=== PATIENT | female | born 1960 | race American Indian/Alaskan Native ===

== ENCOUNTER 2017-07-13 06:30 | Day surgery (SDC) | payer BC, OTHER ==
[2017-07-13] MEDS ORDERED: Lactated Ringers 1,000 ML IV SCH (07:00)
[2017-07-13] MEDS ORDERED: Bupivacaine 25%/EPINEPHrine/PF 30 ML ONE (07:20)
[2017-07-13] MEDS ORDERED: Propofol 200 MG/20 ML SDV ONE ×2 (07:20→08:07)
[2017-07-13] MEDS ORDERED: Lidocaine 2% 5 ML SDV ONE (07:20)
[2017-07-13] MEDS ORDERED: Midazolam 1 MG/ML 2 ML SDV ONE (07:20)
[2017-07-13] MEDS ORDERED: fentaNYL 100 MCG/2 ML SDV ONE (07:20)
[2017-07-13] MEDS ORDERED: ceFAZolin 2 GM in Premix Bag 1 BAG IV ONE (07:30)
--- NOTE | 2017-07-13 07:35 | PCM.PREANE ---
Preanesthetic Assessment - Anesthesia/Transfusion/Family Hx Anesthesia History: Prior Anesthesia Without Reaction Family History of Anesthesia Reaction: No Transfusion History: No Prior Transfusion(s) Intubation History: Unknown - Review of Systems General: No Symptoms Pulmonary: No Symptoms Cardiovascular: No Symptoms Gastrointestinal: No Symptoms Neurological: No Symptoms Other: Reports: None - Physical Assessment NPO Status Date: 07/12/17 NPO Status Time: 20:00 O2 Sat by Pulse Oximetry: 97 Respiratory Rate: 16 Vital Signs: Last Vital Signs Temp 36.2 C 07/13/17 06:51 Pulse 72 07/13/17 06:51 Resp 16 07/13/17 06:51 BP 108/61 07/13/17 06:51 Pulse Ox 97 07/13/17 06:51 Height: 1.7 m Weight: 78.471 kg ASA Class: 2 Mental Status: Alert & Oriented x3 Airway Class: Mallampati = 1 Dentition: Reports: Normal Dentition, Bridge (fixed upper and lower on sides) Thyro-Mental Finger Breadths: 3 Mouth Opening Finger Breadths: 3 ROM/Head Extension: Full Lungs: Clear to Auscultation, Normal Respiratory Effort Cardiovascular: Regular Rate, Regular Rhythm - Allergies Allergies/Adverse Reactions: Allergies Allergy/AdvReac Type Severity Reaction Status Date / Time adalimumab [From Humira] Allergy Rash Verified 07/07/17 08:48 adhesive Allergy Rash Verified 07/07/17 08:48 - Blood Blood Available: No - Anesthesia Plan Pre-Op Medication Ordered: None - Acknowledgements Anesthesia Type Planned: MAC (general anesthesia as back-up plan) Pt an Appropriate Candidate for the Planned Anesthesia: Yes Alternatives and Risks of Anesthesia Discussed w Pt/Guardian: Yes Pt/Guardian Understands and Agrees with Anesthesia Plan: Yes PreAnesthesia Questionnaire HEENT History: Reports: Impaired Vision Other HEENT History: wears glasses Cardiovascular History: Reports: None Respiratory History: Reports: None Gastrointestinal History: Reports: Diverticulosis Genitourinary History: Reports: None 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: Musculoskeletal History: Reports: Arthritis, Fracture Other Musculoskeletal History: hx of fx right leg, rheumatoid arthritis Neurological History: Reports: None Psychiatric History: Reports: None, Other (See Below) (h/o anxiety) Endocrine/Metabolic History: Reports: Hypothyroidism Hematologic History: Reports: Blood Transfusion(s) Immunologic History: Reports: None Oncologic (Cancer) History: Reports: None Dermatologic History: Reports: None - Past Surgical History Head Surgeries/Procedures: Reports: None HEENT Surgical History: Reports: None Cardiovascular Surgical History: Reports: None Respiratory Surgical History: Reports: None GI Surgical History: Reports: Colonoscopy Female Surgical History: Reports: Section (x4), Hysterectomy Other Female Surgeries/Procedures: c/secction x4, exploratory laparotomy, hysterectomy Endocrine Surgical History: Reports: Thyroidectomy Neurological Surgical History: Reports: Laminectomy Other Neurological Surgeries/Procedures: back surgery x2 Musculoskeletal Surgical History: Reports: Arthroscopic Knee (rt. knee) Oncologic Surgical History: Reports: None - SUBSTANCE USE Smoking Status *Q: Former Smoker Days Per Week of Alcohol Use: 0 Number of Drinks Per Day: 0 Total Drinks Per Week: 0 Recreational Drug Use History: No - HOME MEDS Home Medications: Home Meds Cyclobenzaprine [Flexeril] 10 mg PO ASDIRECTED PRN 09/19/14 [History] Levothyroxine Sodium 88 mcg PO DAILY 07/07/17 [History] - CURRENT (IN HOUSE) MEDS Current Meds: Current Medications Hydrocodone Bitart/Acetaminophen ([place] 325-5 Mg) 1 tab PO Q4H PRN PRN Reason: Pain Bupivacaine HCl/Epinephrine Bitart (Marcaine 0.25%/Epinephrine 1:200,000) 10 ml INJECT ONETIME ONE Stop: 07/13/17 08:01 Cefazolin Sodium/Dextrose 2 gm (/ Premix) 50 mls @ 100 mls/hr IV ONETIME ONE Stop: 07/13/17 07:59 Lactated Ringer's (Ringers, Lactated) 1,000 mls @ 125 mls/hr IV ASDIRECTED SCOTT Last Admin: 07/13/17 06:53 Dose: 125 mls/hr Discontinued Medications Fentanyl (Sublimaze) Confirm Administered Dose 100 mcg .ROUTE .STK-MED ONE Stop: 07/13/17 07:21 Bupivacaine HCl/Epinephrine Bitart (Sensorc Mpf 0.25%-Epi 1:311337) Confirm Administered Dose 30 mls @ as directed .ROUTE .STK-MED ONE Stop: 07/13/17 07:21 Lidocaine (Xylocaine-Mpf 2%) Confirm Administered Dose 5 ml .ROUTE .STK-MED ONE Stop: 07/13/17 07:21 Midazolam HCl (Versed 1 Mg/Ml) Confirm Administered Dose 2 mg .ROUTE .STK-MED ONE Stop: 07/13/17 07:21 Propofol (Diprivan 20 Ml) Confirm Administered Dose 200 mg .ROUTE .STK-MED ONE Stop: 07/13/17 07:21
[2017-07-13] MEDS ORDERED: Acetaminophen/HYDROcodone 325-5 MG Tab PO PRN (08:00)
[2017-07-13] MEDS ORDERED: Bupivacaine 0.25%/EPINEPHrine 1:200,000 10 ML SDV INJECT ONE (08:00)
[2017-07-13] MEDS ORDERED: ceFAZolin 1 GM Vial ONE (08:02)
[2017-07-13] MEDS ORDERED: Sodium Chloride 0.9% 20 ML ONE (08:02)
[2017-07-13] MEDS ORDERED: fentaNYL 100 MCG/2 ML SDV IVPUSH PRN (08:21)
[2017-07-13 09:38] VITALS: BP 120/68
--- NOTE | 2017-07-13 13:36 | PCM.OPNOTE ---
- General Post-Op/Procedure Note Date of Surgery/Procedure: 07/13/17 Operative Procedure(s): right middle finger trigger finger release Pre Op Diagnosis: right middle finger trigger finger Post-Op Diagnosis: Same Anesthesia Technique: Local, MAC Primary Surgeon: Patricia Espinosa [employer] Set Up Operator: Dodie Thayer Complications: None Condition: Good Free Text/Narrative:: Intake & Output 07/12/17 07/13/17 07/13/17 23:59 07:59 15:59 Intake Total 900 Balance 900
--- NOTE | 2017-07-15 19:27 | OR ---
SURGEON: NIKKI FERMIN MD DATE OF PROCEDURE: 07/13/2017 PREOPERATIVE DIAGNOSIS: Right middle finger trigger finger. POSTOPERATIVE DIAGNOSIS: Right middle finger trigger finger. PROCEDURE: Right middle finger trigger finger release. 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 Reason for railways assistant was retraction, closure, and prepping and draping assistance. ANESTHESIA: Local MAC. INDICATIONS: Ms. Cruz is a 57-year-old female with trigger finger of the right middle finger. She has failed conservative measures and would like for release. Risks and benefits of surgical release were discussed with her and she was in agreement to proceed. Risks were including, but not limited to, bleeding, infection, damage to underlying or overlying structures, possible need for future interventions, possible scarring. PROCEDURE IN DETAIL: After informed consent was obtained and placed on the chart, the patient was brought to the operating theater in a supine position. After adequate local MAC anesthesia was obtained, the area was prepped and draped and a time-out was completed to confirm side and site. Once adequately confirmed, the arm was exsanguinated and tourniquet was inflated to 200 mmHg after injection of local anesthesia and a small transverse incision was made over the right middle finger A1 gulshan. The gulshan itself was directly located taking care to protect the lateral neurovascular bundle and the gulshan itself was released. It was quite thickened and inflamed. Once adequately released, the tendons were put through full range of motion and appreciated to be non-tethered and non-catching. The wound was irrigated and closed using 5-0 nylon stitches in a horizontal mattress fashion and she was dressed with Xeroform, fluffs, and Kerlix gauze dressing and a 2-inch Freddy wrap. FOLLOWUP INSTRUCTIONS: The patient will see us in approximately 2 weeks. Sooner if any problems, questions, or concerns. All questions were answered. A prescription for pain medication was provided. HEJASS / SHAHIDA /[id number]
== END 2017-07-13 09:30 | disposition home or self-care (01) ==
LOC: MW.SDS 06:30
PROVIDERS: ATTEND Plastic Surgery
DX: M65.331 Trigger finger, right middle finger (principal); E03.9 Hypothyroidism, unspecified; Z91.09 Other allergy status, other than to drugs and biological substances; Z79.899 Other long term (current) drug therapy; Z87.891 Personal history of nicotine dependence
CPT/HCPCS: 26055; J0690; J2250; J3010; J7120; 01810; J2704

== ENCOUNTER 2019-05-26 20:21 | Observation (INO) | payer BC, OTHER ==
[2019-05-26] MEDS ORDERED: Sodium Chloride 0.9% 2.5 ML Syringe FLUSH PRN (20:28)
[2019-05-26] MEDS ORDERED: Sodium Chloride 0.9% 10 ML Syringe FLUSH PRN (20:28)
[2019-05-26] MEDS ORDERED: Aspirin 81 MG Tab.Chew PO ONE (20:28)
[2019-05-26] MEDS ORDERED: Sodium Chloride 0.9% 1,000 ML IV ONE (20:32)
[2019-05-26] MEDS: Nitroglycerin 0.4 MG Tab.SL SL PRN ×3 (20:45→20:55)
--- NOTE | 2019-05-26 20:46 | CR ---
INDICATION: Chest pain TECHNIQUE: Chest 1 views COMPARISON: 11/29/2008 FINDINGS: Cardiovascular and mediastinum: Heart size and vasculature are normal in caliber and appearance. Lungs and pleural spaces: Lungs are clear. No sign of infiltrate or mass. No sign of pleural effusion. No pneumothorax. Bones and soft tissues: No significant findings. Stable elevation of the left diaphragm. IMPRESSION: No acute findings and no significant changes from the prior exam. Dictated by Sang Foster MD @ May 26 2019 8:42PM Signed by Dr. Sang Foster @ May 26 2019 8:44PM
--- NOTE | 2019-05-26 20:49 | EDM.PDOC ---
ED HPI GENERAL MEDICAL PROBLEM - General Chief Complaint: Chest Pain Stated Complaint: CHEST PAIN Time Seen by Provider: 05/26/19 20:27 Source of Information: Reports: Patient History Limitations: Reports: No Limitations - History of Present Illness INITIAL COMMENTS - FREE TEXT/NARRATIVE: HISTORY AND PHYSICAL: History of present illness: Patient is a 59-year-old female who presents to the emergency room today with complaints of midsternal chest pain that radiates into her left neck and shoulder. She states that the pain started this morning, was not doing anything in particular when the pain started. She has tried antacids, one tablet of 81 mg aspirin this morning and resting; all of which have not alleviated her discomfort. Patient states that she does have associated shortness of breath and dizziness. Patient states she is under increased stressors as she has had a few family members pass away recently, including her and aunt. Patient denies any fever, chills, headache, change in vision, syncope or near syncope. Denies any back pain or cough. Denies any abdominal pain, nausea, vomiting, diarrhea, constipation or dysuria. Has not noted any blood in urine or stool. Patient has been eating and drinking appropriately. Patient does have a past medical history of hypertension and does take medication routinely for this, reports she took her medication today Review of systems: As per history of present illness and below otherwise all systems reviewed and negative. Past medical history: As per history of present illness and as reviewed below otherwise noncontributory. Surgical history: As per history of present illness and as reviewed below otherwise noncontributory. Social history: See social history for further information Family history: As per history of present illness and as reviewed below otherwise noncontributory. Physical exam: General: Well-developed and well-nourished 59-year-old female. Alert and oriented. Nontoxic appearing and in no acute distress. HEENT: Atraumatic, normocephalic, pupils equal and reactive bilaterally, negative for conjunctival pallor or scleral icterus, mucous membranes moist, trachea midline. No drooling or trismus noted. No meningeal signs. No hot potato voice noted. Lungs: Clear to auscultation, breath sounds equal bilaterally, upper chest tenderness with palpation. Heart: S1S2, regular rate and rhythm without overt murmur Abdomen: Soft, nondistended, nontender. Negative for masses or hepatosplenomegaly. Negative for costovertebral tenderness. Pelvis: Stable nontender. Skin: Intact, warm, dry. No lesions or rashes noted. Extremities: Atraumatic, moves all extremities per self without difficulty or deficits, negative for cords or calf pain. Neurovascular unremarkable. Neuro: Awake, alert, oriented. Cranial nerves II through XII unremarkable. Cerebellum unremarkable. Motor and sensory unremarkable throughout. Exam nonfocal. Notes: Patient did get relief with the nitroglycerin, now rating it at a 1 or 2 out of 10. We'll give her some morphine to see if this helped subside the pain. Blood pressure has improved. Will continue to monitor. Lab work is unremarkable. Chest x-ray shows no acute findings. We'll keep the patient for observation admission with telemetry. Dr. Ma was consult on this patient and agreeable for continued care. Diagnostics: CBC, CMP, Troponin, EKG, CXR, UA Therapeutics: IV fluids, ASA, Nitro, morphine Impression: Chest Pain w/o IN Plan: Observation admission with telemetry Definitive disposition and diagnosis as appropriate pending reevaluation and review of above. Chest Pain Score (Numeric/FACES): 8 - Related Data Allergies Allergy/AdvReac Type Severity Reaction Status Date / Time adalimumab [From Humira] Allergy Rash Verified 05/26/19 20:23 adhesive Allergy Rash Verified 05/26/19 20:23 Home Meds: Home Meds Cyclobenzaprine [Flexeril] 10 mg PO ASDIRECTED PRN 09/19/14 [History] Levothyroxine Sodium 88 mcg PO DAILY 07/07/17 [History] Acetaminophen/HYDROcodone [[place] 325-5 MG] 1 tab PO Q4H PRN #30 tablet 07/13/17 [Rx] LORazepam [Ativan] 1 mg PO ASDIRECTED 05/26/19 [History] Metoprolol Succinate 25 mg PO ASDIRECTED 05/26/19 [History] Multivitamin/Iron/Folic Acid [Centrum Adults Tablet] 1 each PO ASDIRECTED [History] Past Medical History HEENT History: Reports: Impaired Vision Other HEENT History: wears glasses Cardiovascular History: Reports: None Respiratory History: Reports: None Gastrointestinal History: Reports: Diverticulosis Genitourinary History: Reports: None 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: Musculoskeletal History: Reports: Arthritis, Fracture Other Musculoskeletal History: hx of fx right leg, rheumatoid arthritis Neurological History: Reports: None Psychiatric History: Reports: None, Other (See Below) Endocrine/Metabolic History: Reports: Hypothyroidism Hematologic History: Reports: Blood Transfusion(s) Immunologic History: Reports: None Oncologic (Cancer) History: Reports: None Dermatologic History: Reports: None - Past Surgical History Head Surgeries/Procedures: Reports: None HEENT Surgical History: Reports: None Cardiovascular Surgical History: Reports: None Respiratory Surgical History: Reports: None GI Surgical History: Reports: Colonoscopy Female Surgical History: Reports: Section, Hysterectomy Other Female Surgeries/Procedures: c/secction x4, exploratory laparotomy, hysterectomy Endocrine Surgical History: Reports: Thyroidectomy Neurological Surgical History: Reports: Laminectomy Other Neurological Surgeries/Procedures: back surgery x2 Musculoskeletal Surgical History: Reports: Arthroscopic Knee Oncologic Surgical History: Reports: None Social & Family History - Family History Family Medical History: Noncontributory - Tobacco Use Smoking Status *Q: Never Smoker Second Hand Smoke Exposure: No - Caffeine Use Caffeine Use: Reports: Coffee - Recreational Drug Use Recreational Drug Use: No ED ROS GENERAL - Review of Systems Review Of Systems: Comprehensive ROS is negative, except as noted in HPI. ED EXAM, GENERAL - Physical Exam Exam: See Below (See dictation) Course - Vital Signs Last Recorded V/S: Last Vital Signs Temp 98.5 F 05/26/19 20:25 Pulse 94 05/26/19 21:00 Resp 19 05/26/19 21:00 BP 121/73 05/26/19 21:00 Pulse Ox 97 05/26/19 21:00 - Orders/Labs/Meds Orders: Active Orders 24 hr Category Date Time Status Admission Status [Patient Status] [ADT] Stat ADT 05/26/19 21:18 Active EKG Documentation Completion [RC] STAT Care 05/26/19 20:28 Active UA RFX ODALIS AND CULT IF INDIC [URIN] Stat Lab 05/26/19 20:52 Ordered Sodium Chloride 0.9% [Normal Saline] 1,000 ml Med 05/26/19 20:32 Active IV STAT Sodium Chloride 0.9% [Saline Flush] Med 05/26/19 20:28 Active 10 ml FLUSH ASDIRECTED PRN Sodium Chloride 0.9% [Saline Flush] Med 05/26/19 20:28 Active 2.5 ml FLUSH ASDIRECTED PRN Saline Lock Insert [OM.PC] Stat Oth 05/26/19 20:28 Ordered Medication Orders Sodium Chloride (Normal Saline) 1,000 mls @ 125 mls/hr IV STAT ONE Stop: 05/27/19 04:31 Last Admin: 05/26/19 20:45 Dose: 125 mls/hr Sodium Chloride (Saline Flush) 10 ml FLUSH ASDIRECTED PRN PRN Reason: Keep Vein Open Sodium Chloride (Saline Flush) 2.5 ml FLUSH ASDIRECTED PRN PRN Reason: Keep Vein Open Labs: Laboratory Tests 05/26/19 05/26/19 Range/Units 20:30 20:30 WBC 9.90 (4.0-11.0) K/uL RBC 4.56 (4.30-5.90) M/uL Hgb 13.3 (12.0-16.0) g/dL Hct 39.9 (36.0-46.0) % MCV 87.5 (80.0-98.0) fL MCH 29.2 (27.0-32.0) pg MCHC 33.3 (31.0-37.0) g/dL RDW Std Deviation 43.4 (28.0-62.0) fl RDW Coeff of Ana 14 (11.0-15.0) % Plt Count 243 (150-400) K/uL MPV 11.20 (7.40-12.00) fL Neut % (Auto) 61.7 (48.0-80.0) % Lymph % (Auto) 30.4 (16.0-40.0) % [place] % (Auto) 5.8 (0.0-15.0) % Eos % (Auto) 1.9 (0.0-7.0) % Baso % (Auto) 0.2 (0.0-1.5) % Neut # (Auto) 6.1 H (1.4-5.7) K/uL Lymph # (Auto) 3.0 H (0.6-2.4) K/uL [place] # (Auto) 0.6 (0.0-0.8) K/uL Eos # (Auto) 0.2 (0.0-0.7) K/uL Baso # (Auto) 0.0 (0.0-0.1) K/uL Nucleated RBC % 0.0 /100WBC Nucleated RBCs # 0 K/uL Sodium 141 (136-145) mmol/L Potassium 3.9 (3.5-5.1) mmol/L Chloride 105 (98-107) mmol/L Carbon Dioxide 24.4 (21.0-32.0) mmol/L BUN 13 (7.0-18.0) mg/dL Creatinine 0.8 (0.6-1.0) mg/dL Est Cr Clr Drug Dosing 74.54 mL/min Estimated GFR (MDRD) > 60.0 ml/min Glucose 119 H (74-106) mg/dL Calcium 8.9 (8.5-10.1) mg/dL Total Bilirubin 0.2 (0.2-1.0) mg/dL AST 26 (15-37) IU/L ALT 42 (14-63) IU/L Alkaline Phosphatase 115 (46-116) U/L Troponin I < 0.050 (0.000-0.056) ng/mL Total Protein 7.2 (6.4-8.2) g/dL Albumin 3.9 (3.4-5.0) g/dL Globulin 3.3 (2.6-4.0) g/dL Albumin/Globulin Ratio 1.2 (0.9-1.6) Meds: Medications Generic Name Dose Route Start Last Admin Trade Name Luísq PRN Reason Stop Dose Admin Sodium Chloride 1,000 mls @ 125 mls/hr 05/26/19 20:32 05/26/19 20:45 Normal Saline IV 05/27/19 04:31 125 mls/hr STAT ONE Administration Sodium Chloride 10 ml 05/26/19 20:28 Saline Flush FLUSH ASDIRECTED PRN Keep Vein Open Sodium Chloride 2.5 ml 05/26/19 20:28 Saline Flush FLUSH ASDIRECTED PRN Keep Vein Open Discontinued Medications Generic Name Dose Route Start Last Admin Trade Name Freq PRN Reason Stop Dose Admin Aspirin 324 mg 05/26/19 20:28 05/26/19 20:32 Aspirin PO 05/26/19 20:29 324 mg ONETIME ONE Administration Morphine Sulfate 2 mg 05/26/19 21:02 Morphine IVPUSH 05/26/19 21:03 ONETIME ONE Nitroglycerin 0.4 mg 05/26/19 20:32 05/26/19 20:55 Nitrostat SL 0.4 mg Q5M PRN Administration Chest Pain Departure - Departure Time of Disposition: 21:26 Disposition: Refer to Observation Clinical Impression: Chest pain, rule out acute myocardial infarction Referrals: PCP,Unknown [Primary Care Provider] - Forms: ED Department Discharge - My Orders Last 24 Hours: My Active Orders 05/26/19 20:28 EKG Documentation Completion [RC] STAT Sodium Chloride 0.9% [Saline Flush] 10 ml FLUSH ASDIRECTED PRN Sodium Chloride 0.9% [Saline Flush] 2.5 ml FLUSH ASDIRECTED PRN Saline Lock Insert [OM.PC] Stat 05/26/19 20:32 Sodium Chloride 0.9% [Normal Saline] 1,000 ml IV STAT 05/26/19 20:52 UA RFX ODALIS AND CULT IF INDIC [URIN] Stat 05/26/19 21:18 Admission Status [Patient Status] [ADT] Stat - Assessment/Plan Last 24 Hours: My Active Orders 05/26/19 20:28 EKG Documentation Completion [RC] STAT Sodium Chloride 0.9% [Saline Flush] 10 ml FLUSH ASDIRECTED PRN Sodium Chloride 0.9% [Saline Flush] 2.5 ml FLUSH ASDIRECTED PRN Saline Lock Insert [OM.PC] Stat 05/26/19 20:32 Sodium Chloride 0.9% [Normal Saline] 1,000 ml IV STAT 05/26/19 20:52 UA RFX ODALIS AND CULT IF INDIC [URIN] Stat 05/26/19 21:18 Admission Status [Patient Status] [ADT] Stat
[2019-05-26] MEDS ORDERED: Morphine 2 MG/ML Syringe IVPUSH ONE ×2 (21:02→23:46)
[2019-05-26 21:12] LABS: BLOOD UREA NITROGEN,BUN 13 mg/dL (7.0-18.0); CARBON DIOXIDE,CO2 24.4 mmol/L (21.0-32.0); CHLORIDE,CL 105 mmol/L (98-107); GLUCOSE RANDOM 119 mg/dL (74-106); POTASSIUM,K 3.9 mmol/L (3.5-5.1); SODIUM,NA 141 mmol/L (136-145)
[2019-05-26] MEDS ORDERED: Acetaminophen 325 MG Tab PO PRN (21:57)
[2019-05-26] MEDS ORDERED: Ondansetron 4 MG Tab.DIS PO PRN (21:57)
[2019-05-26] MEDS ORDERED: Albuterol/Ipratropium 3.0-0.5 MG/3 ML Neb Soln NEB PRN (21:57)
[2019-05-26] MEDS ORDERED: Ondansetron 4 MG/2 ML SDV IVPUSH PRN (21:57)
[2019-05-26] MEDS ORDERED: atorvaSTATin 40 MG Tab PO SCH (22:01)
--- NOTE | 2019-05-26 22:03 | PCM.HP.2 ---
H&P History of Present Illness - General Date of Service: 05/26/19 Admit Problem/Dx: Admission Diagnosis/Problem Admission Diagnosis/Problem Chest pain, rule out acute myocardial infarction Source of Information: Patient History Limitations: Reports: No Limitations - History of Present Illness Initial Comments - Free Text/Narative: Patient is a 59-year-old female with PMH of HTN, hypothyroidism, anxiety who presents to the emergency room today with c/o of midsternal chest pain that radiates into her left neck and shoulder. Patient states that her pain started this AM with no apparent trigger. She attributed it to acidity so took antacids , and aspirin but it didn't improve the pain. Patient denied palpitations, dizziness, syncope, SOB, cough, fever. Patient states that she had a in her family so has been under a lot of stress. Denies any abdominal pain, nausea , vomiting, diarrhea, constipation or dysuria. In the ER patient recived ASA, morphine and nitro which improved the pain, EKG showed sinus rhythm, 1st troponin was negative. Patient has been admitted for ACS rule out. Onset of Symptoms: Reports: Today, Sudden Duration of Symptoms: Reports: Hour(s): Location: Reports: Neck, Chest Quality: Reports: Sharp Improves with: Reports: None Worsens with: Reports: None Chest Pain Score (Numeric/FACES): 8 - Related Data Allergies/Adverse Reactions: Allergies Allergy/AdvReac Type Severity Reaction Status Date / Time adalimumab [From Humira] Allergy Rash Verified 05/26/19 22:13 adhesive Allergy Rash Verified 05/26/19 22:13 Home Medications: Home Meds Cyclobenzaprine [Flexeril] 10 mg PO ASDIRECTED PRN 09/19/14 [History] Levothyroxine Sodium 88 mcg PO DAILY 07/07/17 [History] LORazepam [Ativan] 1 mg PO ASDIRECTED 05/26/19 [History] Metoprolol Succinate 25 mg PO ASDIRECTED 05/26/19 [History] Multivitamin/Iron/Folic Acid [Centrum Adults Tablet] 1 each PO ASDIRECTED [History] Past Medical History HEENT History: Reports: Impaired Vision Other HEENT History: wears glasses Cardiovascular History: Reports: None Respiratory History: Reports: None Gastrointestinal History: Reports: Diverticulosis Genitourinary History: Reports: None MANAGED CARE PROVIDER History: Reports: Musculoskeletal History: Reports: Arthritis, Fracture Other Musculoskeletal History: hx of fx right leg, rheumatoid arthritis Neurological History: Reports: None Psychiatric History: Reports: None, Other (See Below) Endocrine/Metabolic History: Reports: Hypothyroidism Hematologic History: Reports: Blood Transfusion(s) Immunologic History: Reports: None Oncologic (Cancer) History: Reports: None Dermatologic History: Reports: None - Past Surgical History Head Surgeries/Procedures: Reports: None HEENT Surgical History: Reports: None Cardiovascular Surgical History: Reports: None Respiratory Surgical History: Reports: None GI Surgical History: Reports: Colonoscopy Female Surgical History: Reports: Section, Hysterectomy Other Female Surgeries/Procedures: c/secction x4, exploratory laparotomy, hysterectomy Endocrine Surgical History: Reports: Thyroidectomy Neurological Surgical History: Reports: Laminectomy Other Neurological Surgeries/Procedures: back surgery x2 Musculoskeletal Surgical History: Reports: Arthroscopic Knee Oncologic Surgical History: Reports: None Social & Family History - Family History Family Medical History: Noncontributory - Tobacco Use Smoking Status *Q: Never Smoker Second Hand Smoke Exposure: No - Caffeine Use Caffeine Use: Reports: Coffee - Recreational Drug Use Recreational Drug Use: No H&P Review of Systems - Review of Systems: Review Of Systems: See Below General: Denies: Fever, Chills, Malaise HEENT: Denies: Contact Lenses, Dysphasia Pulmonary: Denies: Shortness of Breath, Wheezing Cardiovascular: Reports: Chest Pain. Denies: Palpitations, Dyspnea on Exertion , Orthopnea, PND, Edema, Lightheadedness, Syncope Gastrointestinal: Denies: Abdominal Pain, Anorexia, Black Stool, Diarrhea, Decreased Appetite Genitourinary: Denies: Dysuria, Frequency, Burning Musculoskeletal: Denies: Neck Pain, Shoulder Pain, Arm Pain Skin: Denies: Cyanosis, Jaundice, Mottled Psychiatric: Denies: Confusion, Depression, Mood Lability Neurological: Denies: Confusion, Dizziness, Headache, Numbness Exam - Exam Exam: See Below - Vital Signs Vital Signs: Last Vital Signs Temp 36.9 C 05/26/19 20:25 Pulse 81 05/26/19 21:29 Resp 18 05/26/19 21:29 BP 134/68 05/26/19 21:29 Pulse Ox 99 05/26/19 21:29 Weight: 77.111 kg - Exam General: Alert, Oriented, Cooperative HEENT: Conjunctiva Clear Neck: Supple, Trachea Midline Lungs: Clear to Auscultation, Normal Respiratory Effort Cardiovascular: Regular Rate, Regular Rhythm GI/Abdominal Exam: Normal Bowel Sounds, Soft, Non-Tender Extremities: Normal Inspection, No Pedal Edema Peripheral Pulses: 3+: Dorsalis Pedis (L), Dorsalis Pedis (R) - Patient Data Lab Results Last 24 hrs: Laboratory Results - last 24 hr 05/26/19 05/26/19 Range/Units 20:30 20:30 WBC 9.90 (4.0-11.0) K/uL RBC 4.56 (4.30-5.90) M/uL Hgb 13.3 (12.0-16.0) g/dL Hct 39.9 (36.0-46.0) % MCV 87.5 (80.0-98.0) fL MCH 29.2 (27.0-32.0) pg MCHC 33.3 (31.0-37.0) g/dL RDW Std Deviation 43.4 (28.0-62.0) fl RDW Coeff of Ana 14 (11.0-15.0) % Plt Count 243 (150-400) K/uL MPV 11.20 (7.40-12.00) fL Neut % (Auto) 61.7 (48.0-80.0) % Lymph % (Auto) 30.4 (16.0-40.0) % [place] % (Auto) 5.8 (0.0-15.0) % Eos % (Auto) 1.9 (0.0-7.0) % Baso % (Auto) 0.2 (0.0-1.5) % Neut # (Auto) 6.1 H (1.4-5.7) K/uL Lymph # (Auto) 3.0 H (0.6-2.4) K/uL [place] # (Auto) 0.6 (0.0-0.8) K/uL Eos # (Auto) 0.2 (0.0-0.7) K/uL Baso # (Auto) 0.0 (0.0-0.1) K/uL Nucleated RBC % 0.0 /100WBC Nucleated RBCs # 0 K/uL Sodium 141 (136-145) mmol/L Potassium 3.9 (3.5-5.1) mmol/L Chloride 105 (98-107) mmol/L Carbon Dioxide 24.4 (21.0-32.0) mmol/L BUN 13 (7.0-18.0) mg/dL Creatinine 0.8 (0.6-1.0) mg/dL Est Cr Clr Drug Dosing 74.54 mL/min Estimated GFR (MDRD) > 60.0 ml/min Glucose 119 H (74-106) mg/dL Calcium 8.9 (8.5-10.1) mg/dL Total Bilirubin 0.2 (0.2-1.0) mg/dL AST 26 (15-37) IU/L ALT 42 (14-63) IU/L Alkaline Phosphatase 115 (46-116) U/L Troponin I < 0.050 (0.000-0.056) ng/mL Total Protein 7.2 (6.4-8.2) g/dL Albumin 3.9 (3.4-5.0) g/dL Globulin 3.3 (2.6-4.0) g/dL Albumin/Globulin Ratio 1.2 (0.9-1.6) Result Diagrams: 05/26/19 20:30 05/26/19 20:30 *Q Meaningful Use (ADM) - VTE Risk Assess *Q Each Risk Factor Represents 1 Point: Age 41 - 59 years Total Score 1 Point Risk Factors: 1 Each Risk Factor Represents 2 Points: None Total Score 2 Point Risk Factors: 0 Each Risk Factor Represents 3 Points: None Total Score 3 Point Risk Factors: 0 - Problem List (1) Hypothyroidism SNOMED Code(s): 43578711 ICD Code: E03.9 - HYPOTHYROIDISM, UNSPECIFIED Status: Acute Current Visit : Yes (2) Anxiety SNOMED Code(s): 34461809 ICD Code: F41.9 - ANXIETY DISORDER, UNSPECIFIED Status: Acute Current Visit: Yes (3) Chest pain, rule out acute myocardial infarction SNOMED Code(s): 00179051 ICD Code: R07.9 - CHEST PAIN, UNSPECIFIED Status: Acute Current Visit: Yes Problem List Initiated/Reviewed/Updated: Yes Orders Last 24hrs: Active Orders 24 hr Category Date Time Status Admission Status [Patient Status] [ADT] Stat ADT 05/26/19 21:18 Active Antiembolic Devices [RC] PER UNIT ROUTINE Care 05/26/19 21:59 Ordered Blood Glucose Check, Bedside [RC] BIDAC Care 05/26/19 21:57 Ordered EKG Documentation Completion [RC] STAT Care 05/26/19 20:28 Active Oxygen Therapy [RC] PRN Care 05/26/19 21:57 Ordered RT Aerosol Therapy [RC] ASDIRECTED Care 05/26/19 21:59 Ordered VTE/DVT Education [RC] PER UNIT ROUTINE Care 05/26/19 21:57 Ordered Vital Signs [RC] Q4H Care 05/26/19 21:57 Ordered Heart Healthy Diet [DIET] Diet 05/27/19 Breakfast Ordered Echo 2D wo Cont [US] Routine Exams 05/26/19 22:02 Ordered GLYCOSYLATED HEMOGLOBIN,HGBA1C [CHEM] AM Lab 05/27/19 05:11 Ordered LIPID PANEL [CHEM] AM Lab 05/27/19 05:11 Ordered TSH [CHEM] AM Lab 05/27/19 05:11 Ordered UA RFX ODALIS AND CULT IF INDIC [URIN] Stat Lab 05/26/19 20:52 Ordered Acetaminophen [Tylenol] Med 05/26/19 21:57 Ordered 650 mg PO Q4H PRN Albuterol/Ipratropium [DuoNeb 3.0-0.5 MG/3 ML] Med 05/26/19 21:57 Ordered 3 ml NEB Q4HRRT PRN Aspirin Med 05/27/19 09:00 Ordered 81 mg PO DAILY Ondansetron [Zofran ODT] Med 05/26/19 21:57 Ordered 4 mg PO Q4H PRN Ondansetron [Zofran] Med 05/26/19 21:57 Ordered 4 mg IVPUSH Q4H PRN Sodium Chloride 0.9% [Normal Saline] 1,000 ml Med 05/26/19 20:32 Active IV STAT Sodium Chloride 0.9% [Saline Flush] Med 05/26/19 20:28 Active 10 ml FLUSH ASDIRECTED PRN Sodium Chloride 0.9% [Saline Flush] Med 05/26/19 20:28 Active 2.5 ml FLUSH ASDIRECTED PRN atorvaSTATin [Lipitor] Med 05/26/19 22:01 Ordered 40 mg PO BEDTIME Saline Lock Insert [OM.PC] Stat Oth 05/26/19 20:28 Ordered Sequential Compression Device [OM.PC] Per Unit Routine Oth 05/26/19 21:57 Ordered Resuscitation Status Routine Resus Stat 05/26/19 21:57 Ordered Medication Orders Acetaminophen (Tylenol) 650 mg PO Q4H PRN PRN Reason: Pain (Mild 1-3)/fever Albuterol/Ipratropium (Duoneb 3.0-0.5 Mg/3 Ml) 3 ml NEB Q4HRRT PRN PRN Reason: Shortness Of Breath/wheezing Aspirin (Aspirin) 81 mg PO DAILY [facility] Atorvastatin Calcium (Lipitor) 40 mg PO BEDTIME [facility] Sodium Chloride (Normal Saline) 1,000 mls @ 125 mls/hr IV STAT ONE Stop: 05/27/19 04:31 Last Admin: 05/26/19 20:45 Dose: 125 mls/hr Ondansetron HCl (Zofran Odt) 4 mg PO Q4H PRN PRN Reason: nausea, able to take PO Ondansetron HCl (Zofran) 4 mg IVPUSH Q4H PRN PRN Reason: Nausea/Vomiting Sodium Chloride (Saline Flush) 10 ml FLUSH ASDIRECTED PRN PRN Reason: Keep Vein Open Sodium Chloride (Saline Flush) 2.5 ml FLUSH ASDIRECTED PRN PRN Reason: Keep Vein Open Assessment/Plan Comment:: A/P: Patient comes in with C/P, recent stressors with of EKG unremarkable, 1st trop negative Will con to trend troponin start oxygenation by NC Start ASA, statin Obtain TSH, Lipid profile, HbA1c for risk stratification BP acceptable for now, will hold B hilda
[2019-05-26] MEDS ORDERED: Acetaminophen/HYDROcodone 325-5 MG Tab PO PRN (22:09)
[2019-05-26] MEDS ORDERED: LORazepam 1 MG Tab PO SCH ×2 (22:15→23:45)
[2019-05-26] MEDS ORDERED: Non-Formulary Medication 1 Each (Multivitamin/Iron/Folic Acid [Centrum Adults Tablet] 1 EA PO SCH (22:15)
[2019-05-27 06:30] LABS: BLOOD UREA NITROGEN,BUN 12 mg/dL (7.0-18.0); CARBON DIOXIDE,CO2 27.5 mmol/L (21.0-32.0); CHLORIDE,CL 106 mmol/L (98-107); GLUCOSE RANDOM 102 mg/dL (74-106); POTASSIUM,K 3.6 mmol/L (3.5-5.1); SODIUM,NA 141 mmol/L (136-145)
[2019-05-27] MEDS ORDERED: Levothyroxine 88 MCG Tab PO SCH (09:00)
[2019-05-27] MEDS ORDERED: Aspirin 81 MG Tab.Chew PO SCH (09:00)
--- NOTE | 2019-05-27 12:04 | PCM.DCSUM1 ---
Discharge Summary - Hospital Course Free Text/Narrative:: Patient is a 59-year-old female with PMH of HTN, hypothyroidism, anxiety who presents to the emergency room today with c/o of midsternal chest pain that radiates into her left neck and shoulder. Patient states that her pain started this AM with no apparent trigger. She attributed it to acidity so took antacids , and aspirin but it didn't improve the pain. Patient denied palpitations, dizziness, syncope, SOB, cough, fever. Patient states that she had a in her family so has been under a lot of stress. Denies any abdominal pain, nausea , vomiting, diarrhea, constipation or dysuria. In the ER patient received ASA, morphine and nitro which improved the pain, EKG showed sinus rhythm, 1st troponin was negative. Patient has been admitted for ACS rule out. All 3 troponis were negative. Lipid profile was normal. HbA1c was 6. TSH normal. Patients chest pain improved. 2D ECHO was ordered but couldn't be done routinely over the weekend. Patient was medically stable to be discharged, chest pain likely stress induced, need to f/u with PCP and cardiology and obtain 2D ECHO on Outpatient basis. patient was started on low dose ASA and low dose stain. Diagnosis: Stroke: No - Discharge Data Discharge Date: 05/27/19 Discharge Disposition: Home, Self-Care 01 Condition: Fair - Referral to Home Health Primary Care Physician: PCP Unknown - Discharge Diagnosis/Problem(s) (1) Chest pain, rule out acute myocardial infarction SNOMED Code(s): 17598613 ICD Code: R07.9 - CHEST PAIN, UNSPECIFIED Status: Acute Current Visit: Yes (2) Hypothyroidism SNOMED Code(s): 32300196 ICD Code: E03.9 - HYPOTHYROIDISM, UNSPECIFIED Status: Acute Current Visit : Yes (3) Anxiety SNOMED Code(s): 67019895 ICD Code: F41.9 - ANXIETY DISORDER, UNSPECIFIED Status: Acute Current Visit: Yes - Patient Instructions Diet: Heart Healthy Diet Activity: As Tolerated Driving: May Drive Today Showering/Bathing: May Shower Notify Provider of: Increased Pain, Nausea and/or Vomiting - Discharge Plan *PRESCRIPTION DRUG MONITORING PROGRAM REVIEWED*: Not Applicable *COPY OF PRESCRIPTION DRUG MONITORING REPORT IN PATIENT SILVIANO: Not Applicable Prescriptions/Med Rec: Aspirin 81 mg PO DAILY #30 tab.chew atorvaSTATin [Lipitor] 10 mg PO BEDTIME #30 tab Home Medications: Home Meds Cyclobenzaprine [Flexeril] 10 mg PO BEDTIME PRN 09/19/14 [History] Levothyroxine Sodium 88 mcg PO DAILY 07/07/17 [History] LORazepam [Ativan] 1 mg PO BEDTIME 05/26/19 [History] Metoprolol Succinate 25 mg PO DAILY 05/26/19 [History] Multivitamin/Iron/Folic Acid [Centrum Adults Tablet] 1 each PO DAILY 05/26/19 [ History] Aspirin 81 mg PO DAILY #30 tab.chew 05/27/19 [Rx] atorvaSTATin [Lipitor] 10 mg PO BEDTIME #30 tab 05/27/19 [Rx] Oxygen Therapy Mode: Room Air Patient Handouts: Aspirin, ASA chewable tablets, Nonspecific Chest Pain, Easy- to-Read, Atorvastatin tablets Referrals: [facility]inic [Ordering Only Provider] - (Call the clinic on Tuesday to make a hospital follow-up. This was not able to be done for you due to it being the weekend. ) Emili Newton MD [Physician] - - Discharge Summary/Plan Comment DC Time >30 min.: No - Patient Data Vitals - Most Recent: Last Vital Signs Temp 36.2 C 05/27/19 07:37 Pulse 70 05/27/19 07:37 Resp 15 05/27/19 07:37 BP 114/57 L 05/27/19 07:37 Pulse Ox 100 05/27/19 07:37 Weight - Most Recent: 77.111 kg I&O - Last 24 hours: Intake & Output 05/26/19 05/27/19 05/27/19 22:59 06:59 14:59 Intake Total 300 Output Total 350 Balance -50 Lab Results - Last 24 hrs: Laboratory Results - last 24 hr 05/26/19 05/26/19 05/26/19 Range/Units 20:30 20:30 23:53 WBC 9.90 (4.0-11.0) K/uL RBC 4.56 (4.30-5.90) M/uL Hgb 13.3 (12.0-16.0) g/dL Hct 39.9 (36.0-46.0) % MCV 87.5 (80.0-98.0) fL MCH 29.2 (27.0-32.0) pg MCHC 33.3 (31.0-37.0) g/dL RDW Std Deviation 43.4 (28.0-62.0) fl RDW Coeff of Ana 14 (11.0-15.0) % Plt Count 243 (150-400) K/uL MPV 11.20 (7.40-12.00) fL Neut % (Auto) 61.7 (48.0-80.0) % Lymph % (Auto) 30.4 (16.0-40.0) % [place] % (Auto) 5.8 (0.0-15.0) % Eos % (Auto) 1.9 (0.0-7.0) % Baso % (Auto) 0.2 (0.0-1.5) % Neut # (Auto) 6.1 H (1.4-5.7) K/uL Lymph # (Auto) 3.0 H (0.6-2.4) K/uL [place] # (Auto) 0.6 (0.0-0.8) K/uL Eos # (Auto) 0.2 (0.0-0.7) K/uL Baso # (Auto) 0.0 (0.0-0.1) K/uL Nucleated RBC % 0.0 /100WBC Nucleated RBCs # 0 K/uL Sodium 141 (136-145) mmol/L Potassium 3.9 (3.5-5.1) mmol/L Chloride 105 (98-107) mmol/L Carbon Dioxide 24.4 (21.0-32.0) mmol/L BUN 13 (7.0-18.0) mg/dL Creatinine 0.8 (0.6-1.0) mg/dL Est Cr Clr Drug Dosing 74.54 mL/min Estimated GFR (MDRD) > 60.0 ml/min Glucose 119 H (74-106) mg/dL POC Glucose (60-110) mg/dL Hemoglobin A1c (4.5-6.2) % Calcium 8.9 (8.5-10.1) mg/dL Phosphorus (2.6-4.7) mg/dL Magnesium (1.8-2.4) mg/dL Total Bilirubin 0.2 (0.2-1.0) mg/dL AST 26 (15-37) IU/L ALT 42 (14-63) IU/L Alkaline Phosphatase 115 (46-116) U/L Troponin I < 0.050 (0.000-0.056) ng/mL Total Protein 7.2 (6.4-8.2) g/dL Albumin 3.9 (3.4-5.0) g/dL Globulin 3.3 (2.6-4.0) g/dL Albumin/Globulin Ratio 1.2 (0.9-1.6) Triglycerides (0-200) mg/dL Cholesterol (50-200) mg/dL LDL Cholesterol, Calc (60-180) mg/dL VLDL Cholesterol (5-55) mg/dL HDL Cholesterol (40-60) mg/dL Cholesterol/HDL Ratio (3.3-6.0) TSH 3rd Generation (0.36-3.74) uIU/mL Urine Color YELLOW Urine Appearance CLEAR Urine pH 6.5 (5.0-8.0) Ur Specific [place] 1.020 (1.001-1.035) Urine Protein NEGATIVE (NEGATIVE) mg/dL Urine Glucose (UA) NEGATIVE (NEGATIVE) mg/dL Urine Ketones NEGATIVE (NEGATIVE) mg/dL Urine Occult Blood NEGATIVE (NEGATIVE) Urine Nitrite NEGATIVE (NEGATIVE) Urine Bilirubin NEGATIVE (NEGATIVE) Urine Urobilinogen 0.2 (<2.0) EU/dL Ur Leukocyte Esterase NEGATIVE (NEGATIVE) 05/27/19 05/27/19 05/27/19 Range/Units 03:20 05:45 05:45 WBC (4.0-11.0) K/uL RBC (4.30-5.90) M/uL Hgb (12.0-16.0) g/dL Hct (36.0-46.0) % MCV (80.0-98.0) fL MCH (27.0-32.0) pg MCHC (31.0-37.0) g/dL RDW Std Deviation (28.0-62.0) fl RDW Coeff of Ana (11.0-15.0) % Plt Count (150-400) K/uL MPV (7.40-12.00) fL Neut % (Auto) (48.0-80.0) % Lymph % (Auto) (16.0-40.0) % [place] % (Auto) (0.0-15.0) % Eos % (Auto) (0.0-7.0) % Baso % (Auto) (0.0-1.5) % Neut # (Auto) (1.4-5.7) K/uL Lymph # (Auto) (0.6-2.4) K/uL [place] # (Auto) (0.0-0.8) K/uL Eos # (Auto) (0.0-0.7) K/uL Baso # (Auto) (0.0-0.1) K/uL Nucleated RBC % /100WBC Nucleated RBCs # K/uL Sodium 141 (136-145) mmol/L Potassium 3.6 (3.5-5.1) mmol/L Chloride 106 (98-107) mmol/L Carbon Dioxide 27.5 (21.0-32.0) mmol/L BUN 12 (7.0-18.0) mg/dL Creatinine 0.8 (0.6-1.0) mg/dL Est Cr Clr Drug Dosing 74.54 mL/min Estimated GFR (MDRD) > 60.0 ml/min Glucose 102 (74-106) mg/dL POC Glucose (60-110) mg/dL Hemoglobin A1c 6.0 (4.5-6.2) % Calcium 8.2 L (8.5-10.1) mg/dL Phosphorus 3.8 (2.6-4.7) mg/dL Magnesium 2.1 (1.8-2.4) mg/dL Total Bilirubin (0.2-1.0) mg/dL AST (15-37) IU/L ALT (14-63) IU/L Alkaline Phosphatase (46-116) U/L Troponin I < 0.050 (0.000-0.056) ng/mL Total Protein (6.4-8.2) g/dL Albumin (3.4-5.0) g/dL Globulin (2.6-4.0) g/dL Albumin/Globulin Ratio (0.9-1.6) Triglycerides 60 (0-200) mg/dL Cholesterol 155 (50-200) mg/dL LDL Cholesterol, Calc 104 (60-180) mg/dL VLDL Cholesterol 12 (5-55) mg/dL HDL Cholesterol 39 L (40-60) mg/dL Cholesterol/HDL Ratio 4.0 (3.3-6.0) TSH 3rd Generation 1.62 (0.36-3.74) uIU/mL Urine Color Urine Appearance Urine pH (5.0-8.0) Ur Specific [place] (1.001-1.035) Urine Protein (NEGATIVE) mg/dL Urine Glucose (UA) (NEGATIVE) mg/dL Urine Ketones (NEGATIVE) mg/dL Urine Occult Blood (NEGATIVE) Urine Nitrite (NEGATIVE) Urine Bilirubin (NEGATIVE) Urine Urobilinogen (<2.0) EU/dL Ur Leukocyte Esterase (NEGATIVE) 05/27/19 05/27/19 05/27/19 Range/Units 05:45 08:58 11:56 WBC 6.90 (4.0-11.0) K/uL RBC 4.12 L (4.30-5.90) M/uL Hgb 12.1 (12.0-16.0) g/dL Hct 36.3 (36.0-46.0) % MCV 88.1 (80.0-98.0) fL MCH 29.4 (27.0-32.0) pg MCHC 33.3 (31.0-37.0) g/dL RDW Std Deviation 43.9 (28.0-62.0) fl RDW Coeff of Ana 14 (11.0-15.0) % Plt Count 211 (150-400) K/uL MPV 11.00 (7.40-12.00) fL Neut % (Auto) 56.8 (48.0-80.0) % Lymph % (Auto) 34.6 (16.0-40.0) % [place] % (Auto) 6.4 (0.0-15.0) % Eos % (Auto) 1.9 (0.0-7.0) % Baso % (Auto) 0.3 (0.0-1.5) % Neut # (Auto) 3.9 (1.4-5.7) K/uL Lymph # (Auto) 2.4 (0.6-2.4) K/uL [place] # (Auto) 0.4 (0.0-0.8) K/uL Eos # (Auto) 0.1 (0.0-0.7) K/uL Baso # (Auto) 0.0 (0.0-0.1) K/uL Nucleated RBC % 0.0 /100WBC Nucleated RBCs # 0 K/uL Sodium (136-145) mmol/L Potassium (3.5-5.1) mmol/L Chloride (98-107) mmol/L Carbon Dioxide (21.0-32.0) mmol/L BUN (7.0-18.0) mg/dL Creatinine (0.6-1.0) mg/dL Est Cr Clr Drug Dosing mL/min Estimated GFR (MDRD) ml/min Glucose (74-106) mg/dL POC Glucose 108 (60-110) mg/dL Hemoglobin A1c (4.5-6.2) % Calcium (8.5-10.1) mg/dL Phosphorus (2.6-4.7) mg/dL Magnesium (1.8-2.4) mg/dL Total Bilirubin (0.2-1.0) mg/dL AST (15-37) IU/L ALT (14-63) IU/L Alkaline Phosphatase (46-116) U/L Troponin I < 0.050 (0.000-0.056) ng/mL Total Protein (6.4-8.2) g/dL Albumin (3.4-5.0) g/dL Globulin (2.6-4.0) g/dL Albumin/Globulin Ratio (0.9-1.6) Triglycerides (0-200) mg/dL Cholesterol (50-200) mg/dL LDL Cholesterol, Calc (60-180) mg/dL VLDL Cholesterol (5-55) mg/dL HDL Cholesterol (40-60) mg/dL Cholesterol/HDL Ratio (3.3-6.0) TSH 3rd Generation (0.36-3.74) uIU/mL Urine Color Urine Appearance Urine pH (5.0-8.0) Ur Specific [place] (1.001-1.035) Urine Protein (NEGATIVE) mg/dL Urine Glucose (UA) (NEGATIVE) mg/dL Urine Ketones (NEGATIVE) mg/dL Urine Occult Blood (NEGATIVE) Urine Nitrite (NEGATIVE) Urine Bilirubin (NEGATIVE) Urine Urobilinogen (<2.0) EU/dL Ur Leukocyte Esterase (NEGATIVE) Med Orders - Current: Current Medications Hydrocodone Bitart/Acetaminophen ([place] 325-5 Mg) 1 tab PO Q4H PRN PRN Reason: Pain Albuterol/Ipratropium (Duoneb 3.0-0.5 Mg/3 Ml) 3 ml NEB Q4HRRT PRN PRN Reason: Shortness Of Breath/wheezing Aspirin (Aspirin) 81 mg PO DAILY [facility] Last Admin: 05/27/19 08:06 Dose: 81 mg Atorvastatin Calcium (Lipitor) 40 mg PO BEDTIME [facility] Last Admin: 05/26/19 22:28 Dose: 40 mg Levothyroxine Sodium (Synthroid) 88 mcg PO DAILY [facility] Last Admin: 05/27/19 08:06 Dose: 88 mcg Lorazepam (Ativan) 1 mg PO BEDTIME [facility] Last Admin: 05/27/19 00:11 Dose: 1 mg Non-Formulary Medication (Multivitamin/Iron/Folic Acid [Centrum Adults Tablet]) 1 each PO ASDIRECTED [facility] Ondansetron HCl (Zofran Odt) 4 mg PO Q4H PRN PRN Reason: nausea, able to take PO Ondansetron HCl (Zofran) 4 mg IVPUSH Q4H PRN PRN Reason: Nausea/Vomiting Sodium Chloride (Saline Flush) 10 ml FLUSH ASDIRECTED PRN PRN Reason: Keep Vein Open Sodium Chloride (Saline Flush) 2.5 ml FLUSH ASDIRECTED PRN PRN Reason: Keep Vein Open Discontinued Medications Acetaminophen (Tylenol) 650 mg PO Q4H PRN PRN Reason: Pain (Mild 1-3)/fever Aspirin (Aspirin) 324 mg PO ONETIME ONE Stop: 05/26/19 20:29 Last Admin: 05/26/19 20:32 Dose: 324 mg Sodium Chloride (Normal Saline) 1,000 mls @ 125 mls/hr IV STAT ONE Stop: 05/27/19 04:31 Last Admin: 05/26/19 20:45 Dose: 125 mls/hr Lorazepam (Ativan) 1 mg PO ASDIRECTED [facility] Morphine Sulfate (Morphine) 2 mg IVPUSH ONETIME ONE Stop: 05/26/19 21:03 Last Admin: 05/26/19 21:27 Dose: 2 mg Morphine Sulfate (Morphine) 1 mg IVPUSH ONETIME ONE Stop: 05/26/19 23:47 Last Admin: 05/27/19 00:09 Dose: 1 mg Nitroglycerin (Nitrostat) 0.4 mg SL Q5M PRN PRN Reason: Chest Pain Last Admin: 05/26/19 20:55 Dose: 0.4 mg
[2019-05-27 12:16] VITALS: BP 131/60; PULSE 82
== END 2019-05-27 12:26 | disposition home or self-care (01) ==
LOC: MW.ED 20:21 → MW.MS 21:18
PROVIDERS: ADMIT Student in an Organized Health Care Education/Training Program; ATTEND Student in an Organized Health Care Education/Training Program
DX: R07.2 Precordial pain (principal); I10 Essential (primary) hypertension; E03.9 Hypothyroidism, unspecified; F41.9 Anxiety disorder, unspecified; Z88.8 Allergy status to other drugs, medicaments and biological substances; Z91.048 Other nonmedicinal substance allergy status; Z79.899 Other long term (current) drug therapy
CPT/HCPCS: 36415; 71045; 80048; 80053; 80061; 81003; 82962; 83036; 83735; 84100; 84443; 84484; 85025; 93005; 96361; 96374; 99285; A9270; J2270; J7040; 96376; 99284; G0378; J7030

== ENCOUNTER 2019-08-07 13:14 | Emergency (ER) | payer BC, OTHER ==
--- NOTE | 2019-08-07 14:55 | EDM.PDOC ---
ED HPI GENERAL MEDICAL PROBLEM - General Chief Complaint: Headache Stated Complaint: HEAD INJURY Time Seen by Provider: 08/07/19 14:54 Source of Information: Reports: Patient - History of Present Illness INITIAL COMMENTS - FREE TEXT/NARRATIVE: HISTORY AND PHYSICAL: History of present illness: [Presents by private vehicle States she was at work today at the [employer] on duty however she was outside and slipped and fell on the ice falling back in her head on the ground Hours prior to arrival approximately 10 AM this morning the patient slipped and fell on ice, she did strike her head denies loss of consciousness however complains of 6 out of 10 headache, intermittent dizziness, and nausea no vomiting Secondary complaint of low back pain, she has history of low back pain this is rated less on her pain scale 2 out of 10 no distress able to bend and touch her toes without difficulty however headache increases No fever chills sweats no chest pain shortness of breath or palpitation no bowel or urine symptoms ] Review of systems: As per history of present illness and below otherwise all systems reviewed and negative. Past medical history: As per history of present illness and as reviewed below otherwise noncontributory. Surgical history: As per history of present illness and as reviewed below otherwise noncontributory. Social history: No reported history of drug or alcohol abuse. Family history: As per history of present illness and as reviewed below otherwise noncontributory. Physical exam: HEENT: Atraumatic, normocephalic, pupils reactive, negative for conjunctival pallor or scleral icterus, mucous membranes moist, throat clear, neck supple, nontender, trachea midline. Lungs: Clear to auscultation, breath sounds equal bilaterally, chest nontender. Heart: S1S2, regular, negative for clicks, rubs, or JVD. Abdomen: Soft, nondistended, nontender. Negative for masses or hepatosplenomegaly. Negative for costovertebral tenderness. Pelvis: Stable nontender. Genitourinary: Deferred. Rectal: Deferred. Extremities: Atraumatic, negative for cords or calf pain. Neurovascular unremarkable. Neuro: Awake, alert, oriented. Cranial nerves II through XII unremarkable. Cerebellum unremarkable. Motor and sensory unremarkable throughout. Exam nonfocal. Diagnostics: [Spine-LS head ct no contrast ] Therapeutics: [] Impression: [Low back pain Minus muscle spasm Concussion ] Definitive disposition and diagnosis as appropriate pending reevaluation and review of above. Middle Head Pain Score (Numeric/FACES): 5 - Related Data Allergies Allergy/AdvReac Type Severity Reaction Status Date / Time adalimumab [From Humira] Allergy Rash Verified 08/07/19 13:31 adhesive Allergy Rash Verified 08/07/19 13:31 Home Meds: Home Meds Cyclobenzaprine [Flexeril] 10 mg PO BEDTIME PRN 09/19/14 [History] Levothyroxine Sodium 88 mcg PO DAILY 07/07/17 [History] LORazepam [Ativan] 1 mg PO BEDTIME 05/26/19 [History] Metoprolol Succinate 25 mg PO DAILY 05/26/19 [History] Multivitamin/Iron/Folic Acid [Centrum Adults Tablet] 1 each PO DAILY 05/26/19 [ History] Ibuprofen 800 mg PO ASDIRECTED PRN 08/07/19 [History] Past Medical History HEENT History: Reports: Impaired Vision Other HEENT History: wears glasses Cardiovascular History: Reports: None Respiratory History: Reports: None Gastrointestinal History: Reports: Diverticulosis Genitourinary History: Reports: None SEQUINS SLINGER History: Reports: Other SEQUINS SLINGER History: hx of hysterectomy Musculoskeletal History: Reports: Arthritis, Fracture Other Musculoskeletal History: hx of fx right leg, rheumatoid arthritis Neurological History: Reports: None Psychiatric History: Reports: None, Other (See Below) Endocrine/Metabolic History: Reports: Hypothyroidism Hematologic History: Reports: Blood Transfusion(s) Immunologic History: Reports: None Oncologic (Cancer) History: Reports: None Dermatologic History: Reports: None - Infectious Disease History Infectious Disease History: Reports: Chicken Pox - Past Surgical History Head Surgeries/Procedures: Reports: None HEENT Surgical History: Reports: None Cardiovascular Surgical History: Reports: None Respiratory Surgical History: Reports: None GI Surgical History: Reports: Colonoscopy Female Surgical History: Reports: Section, Hysterectomy Other Female Surgeries/Procedures: c/secction x4, exploratory laparotomy, hysterectomy Endocrine Surgical History: Reports: Thyroidectomy Neurological Surgical History: Reports: Laminectomy Other Neurological Surgeries/Procedures: back surgery x2 Musculoskeletal Surgical History: Reports: Arthroscopic Knee Oncologic Surgical History: Reports: None Social & Family History - Family History Family Medical History: Noncontributory HEENT: Reports: Allergic Rhinitis, Otitis Media, Sinusitis Cardiac: Reports: Heart Failure, Hypertension Respiratory: Reports: COPD : Reports: Nephritic Syndrome Musculoskeletal: Reports: Arthritis, Osteoarthritis, Osteoporosis Neurological: Reports: TIA Endocrine/Metabolic: Reports: Hypothyroidism Hematologic: Reports: Anemia Dermatologic: Reports: Eczema Oncologic: Reports: Pancreatic - Tobacco Use Smoking Status *Q: Former Smoker Used Tobacco, but Quit: Yes Month/Year Tobacco Last Used: 2000 - Caffeine Use Caffeine Use: Reports: Coffee, Tea - Recreational Drug Use Recreational Drug Use: No ED ROS GENERAL - Review of Systems Review Of Systems: See Below ED EXAM, GENERAL - Physical Exam Exam: See Below Course - Vital Signs Last Recorded V/S: Last Vital Signs Temp 98.7 F 08/07/19 13:33 Pulse 83 08/07/19 13:33 Resp 16 08/07/19 13:33 BP 149/72 H 08/07/19 13:33 Pulse Ox 96 08/07/19 13:33 Departure - Departure Time of Disposition: 16:05 Disposition: Home, Self-Care 01 Condition: Good Clinical Impression: Concussion - Discharge Information Instructions: General Headache Without Cause, [id number] [facility] - Forms: ED Department Discharge Additional Instructions: [id number] symptomatic therapy as discussed Return if symptoms persist or worsen or if new concerning symptoms develop Follow-up with occupational health, call phone number below to schedule appropriate follow-up [facility] [place] [address] The following information is given to patients seen in the emergency department who are being discharged to home. This information is to outline your options for follow-up care. We provide all patients seen in our emergency department with a follow-up referral. The need for follow-up, as well as the timing and circumstances, are variable depending upon the specifics of your emergency department visit. If you don't have a primary care physician on staff, we will provide you with a referral. We always advise you to contact your personal physician following an emergency department visit to inform them of the circumstance of the visit and for follow-up with them and/or the need for any referrals to a consulting specialist. The emergency department will also refer you to a specialist when appropriate. This referral assures that you have the opportunity for follow-up care with a specialist. All of these measure are taken in an effort to provide you with optimal care, which includes your follow-up. Under all circumstances we always encourage you to contact your private physician who remains a resource for coordinating your care. When calling for follow-up care, please make the office aware that this follow-up is from your recent emergency room visit. If for any reason you are refused follow-up, please contact the [facility] emergency department at and asked to speak to the emergency department charge nurse. Sepsis Event Note - Evaluation Sepsis Screening Result: No Definite Risk - Focused Exam Vital Signs: Vital Signs Temp Pulse Resp BP Pulse Ox 08/07/19 13:33 98.7 F 83 16 149/72 H 96 Date Exam was Performed: 08/07/19 Time Exam was Performed: 16:05
--- NOTE | 2019-08-07 15:48 | CR ---
Lumbar spine: AP, lateral and coned-down lateral view centered to the lumbosacral junction were obtained. Comparison: No prior lumbar spine imaging is available. Severe disc space narrowing noted at L4-L5. Mild disc space narrowing is noted at the T12-L1. Vertebral body heights are maintained. Mild scattered endplate osteophytes are seen. Pedicles are intact. Sacroiliac joints are unremarkable. Mild deformity of the superior iliac wing is seen most likely due to old trauma. Impression: 1. Mild degenerative change. Other findings as noted above. 2. Nothing acute is appreciated. Diagnostic code #2 Study was dictated in [place] Standard Time
--- NOTE | 2019-08-07 15:48 | CT ---
Head CT Technique: Multiple axial sections through the brain were obtained. Intravenous contrast was not utilized. Comparison: No prior intracranial imaging is available. Findings: CT artifact is noted. Beam hardening artifact also noted within the posterior fossa. Ventricles along with basal cisterns and sulci are convexities appear within normal limits for the patient's age. No abnormal parenchymal densities are seen. No evidence of intracranial hemorrhage. No midline shift or mass effect is seen. Visualized paranasal sinuses and mastoid sinus is shown nothing acute. No acute calvarial abnormality is appreciated. Impression: 1. Artifact as described above. 2. Within this is mild limitation, no acute intracranial abnormality is appreciated. Diagnostic code #2 Study was dictated in [place] Standard Time
[2019-08-07 16:24] VITALS: BP 136/66; PULSE 73
== END 2019-08-07 16:24 | disposition home or self-care (01) ==
LOC: MW.ED 13:14
DX: S06.0X0A Concussion without loss of consciousness, initial encounter (principal); M62.830 Muscle spasm of back; E03.9 Hypothyroidism, unspecified; Z90.710 Acquired absence of both cervix and uterus; Z79.899 Other long term (current) drug therapy; Z91.09 Other allergy status, other than to drugs and biological substances; Z88.8 Allergy status to other drugs, medicaments and biological substances; Z87.891 Personal history of nicotine dependence; W00.0XXA Fall on same level due to ice and snow, initial encounter
CPT/HCPCS: 70450; 70450-26; 72100; 72100-26; 99284; 99284-25

== ENCOUNTER 2023-05-23 13:41 | Emergency (ER) | payer OTHER ==
[2023-05-23] MEDS ORDERED: Aspirin 81 MG Tab.Chew PO ONE (14:03)
[2023-05-23] MEDS ORDERED: Morphine 4 MG/ML Syringe IVPUSH ONE ×2 (14:04→18:09)
[2023-05-23 14:05] LABS: BASOPHILS ABSOLUTE AUTO 0.03 K/uL (0.00-0.20); BASOPHILS PERCENT AUTO 0.4 % (0.0-1.0); EOSINOPHILS ABSOLUTE AUTO 0.15 K/uL (0.00-0.45); EOSINOPHILS PERCENT AUTO 1.9 % (0.0-6.0); HEMATOCRIT 38.3 % (37.0-47.0); HEMOGLOBIN 13.4 g/dL (12.0-16.0); IMMATURE GRAN ABSOLUTE AUTO 0.01 K/uL (0.00-0.05); IMMATURE GRAN PERCENT AUTO 0.1 % (0.0-0.4); LYMPHOCYTES ABSOLUTE AUTO 1.92 K/uL (1.00-4.80); LYMPHOCYTES PERCENT AUTO 23.7 % (24.0-44.0); MEAN CORPUSCULAR HEMOGLOBIN 29.5 pg (28.0-32.0); MEAN CORPUSCULAR VOLUME 84.4 fL (83.0-99.0); MEAN PLATELET VOLUME 10.9 fL (9.4-12.3); MONOCYTES ABSOLUTE AUTO 0.39 K/uL (0.00-0.80); MONOCYTES PERCENT AUTO 4.8 % (0.0-8.0); NEUTROPHILS ABSOLUTE AUTO 5.59 K/uL (1.80-7.70); NEUTROPHILS PERCENT AUTO 69.1 % (41.0-71.0); PLATELET COUNT,PLT 241 K/uL (150-400); RED BLOOD CELL COUNT 4.54 M/uL (4.10-5.30); WHITE BLOOD CELL COUNT,WBC 8.09 K/uL (3.9-11.3)
[2023-05-23 14:18] LABS: INR 0.98 (0.86-1.11); PTT,PARTIAL THROMBOPLSTIN TIME 28.5 SEC (23.9-30.7)
[2023-05-23 14:46] LABS: A/G RATIO 1.1 (0.9-1.6); BILIRUBIN TOTAL 0.3 mg/dL (0.2-1.0); CALCIUM 8.9 mg/dL (8.5-10.1); CREATININE 0.9 mg/dL (0.6-1.0); EST CRCL DRUG DOSING (CG) 58.32 mL/min; POTASSIUM,K 3.2 mmol/L (3.5-5.1); PROTEIN TOTAL,TP 7.8 g/dL (6.4-8.2)
[2023-05-23] MEDS ORDERED: Iopamidol 755 MG/ML 500 ML Multipack Bottle IVPUSH STA (17:02)
[2023-05-23 18:35] VITALS: BP 127/61; PULSE 74
== END 2023-05-23 18:35 | disposition home or self-care (01) ==
LOC: MW.ED 13:41
DX: R07.89 Other chest pain (principal); I10 Essential (primary) hypertension; E03.9 Hypothyroidism, unspecified; Z91.048 Other nonmedicinal substance allergy status; Z79.899 Other long term (current) drug therapy; Z98.890 Other specified postprocedural states
CPT/HCPCS: 36415; 71045; 71275; 74177; 80053; 83690; 83735; 84484; 85025; 85610; 85730; 93005; 96374; 96376; 99285; A9270; J2270; Q9967; 93010; 99284

== ENCOUNTER 2024-04-30 21:05 | Emergency (ER) | payer BC, OTHER ==
[2024-04-30 21:27] LABS: BASOPHILS ABSOLUTE AUTO 0.03 K/uL (0.00-0.20); BASOPHILS PERCENT AUTO 0.3 % (0.0-1.0); EOSINOPHILS PERCENT AUTO 2.1 % (0.0-6.0); HEMATOCRIT 36.9 % (37.0-47.0); HEMOGLOBIN 12.8 g/dL (12.0-16.0); IMMATURE GRAN ABSOLUTE AUTO 0.01 K/uL (0.00-0.05); IMMATURE GRAN PERCENT AUTO 0.1 % (0.0-0.4); LYMPHOCYTES ABSOLUTE AUTO 2.45 K/uL (1.00-4.80); LYMPHOCYTES PERCENT AUTO 26.1 % (24.0-44.0); MEAN CORPUSCULAR HGB CONC 34.7 g/dL (32.0-36.0); MEAN CORPUSCULAR VOLUME 86.6 fL (83.0-99.0); MEAN PLATELET VOLUME 11.1 fL (9.4-12.3); MONOCYTES ABSOLUTE AUTO 0.63 K/uL (0.00-0.80); MONOCYTES PERCENT AUTO 6.7 % (0.0-8.0); NEUTROPHILS ABSOLUTE AUTO 6.06 K/uL (1.80-7.70); NEUTROPHILS PERCENT AUTO 64.7 % (41.0-71.0); PLATELET COUNT,PLT 218 K/uL (150-400); RED BLOOD CELL COUNT 4.26 M/uL (4.10-5.30); WHITE BLOOD CELL COUNT,WBC 9.38 K/uL (3.9-11.3)
[2024-04-30] MEDS: Aspirin 81 MG Tab.Chew PO ONE (21:33)
[2024-04-30] MEDS: Sodium Chloride 0.9% 1,000 ML IV ONE (21:35)
[2024-04-30] MEDS: Nitroglycerin 0.4 MG Tab.SL SL PRN (21:36)
[2024-04-30] MEDS: Sodium Chloride 0.9% 2.5 ML Syringe FLUSH PRN (21:38)
[2024-04-30] MEDS: Sodium Chloride 0.9% 10 ML Syringe FLUSH PRN (21:39)
[2024-04-30 21:41] LABS: PTT,PARTIAL THROMBOPLSTIN TIME 27.4 SEC (23.9-30.7)
[2024-04-30 21:56] LABS: A/G RATIO 1.1 (0.9-1.6); ALANINE AMINOTRANSFERASE,ALT 20 IU/L (14-63); ALBUMIN 3.8 g/dL (3.4-5.0); ALKALINE PHOSPHATASE 96 U/L (46-116); ASPARTATE AMNIOTRANSFERASE,AST 24 IU/L (15-37); BILIRUBIN TOTAL 0.3 mg/dL (0.2-1.0); BLOOD UREA NITROGEN,BUN 20 mg/dL (7.0-18.0); CALCIUM 9.1 mg/dL (8.5-10.1); CARBON DIOXIDE,CO2 27.7 mmol/L (21.0-32.0); CHLORIDE,CL 104 mmol/L (98-107); CREATININE 0.9 mg/dL (0.6-1.0); EST CRCL DRUG DOSING (CG) 62.22 mL/min; GLUCOSE RANDOM 113 mg/dL (74-106); POTASSIUM,K 3.8 mmol/L (3.5-5.1); PRO B-TYPE NATRIUR PEPT,BNPPRO 32 pg/mL (0-125); PROTEIN TOTAL,TP 7.3 g/dL (6.4-8.2); SODIUM,NA 141 mmol/L (136-145)
[2024-04-30 21:57] LABS: ESTIMATED GFR 72 mL/min (>60)
[2024-04-30 22:52] LABS: APPEARANCE,URINE CLOUDY; BILIRUBIN,URINE NEGATIVE (NEGATIVE); COLOR,URINE YELLOW; GLUCOSE,URINE NEGATIVE (NEGATIVE); KETONES,URINE NEGATIVE (NEGATIVE); LEUKOCYTE ESTERASE,URINE MODERATE (NEGATIVE); NITRITE,URINE POSITIVE (NEGATIVE); OCCULT BLOOD,URINE SMALL (NEGATIVE); PROTEIN,URINE TRACE mg/dL (NEGATIVE); UROBILINOGEN,URINE 0.2 EU/dL (<2.0)
[2024-04-30 22:55] LABS: BACTERIA,URINE 4+ (NEGATIVE); EPITHELIAL CELLS,URINE FEW (NONE-FEW); MUCUS,URINE LIGHT (NONE-MOD); RBC,URINE 20-25 (0-2/HPF); WBC,URINE TOO NUMEROUS TO CT (0-5/HPF)
[2024-04-30] MEDS: Nitroglycerin/D5W 25 MG/250 ML BOTTLE IV SCH (23:10)
[2024-05-01 00:17] VITALS: PULSE 79
[2024-05-01 02:17] VITALS: BP 116/56
== END 2024-05-01 02:31 ==
LOC: MW.ED 21:05
DX: I24.9 Acute ischemic heart disease, unspecified (principal); I10 Essential (primary) hypertension; E03.9 Hypothyroidism, unspecified; Z90.710 Acquired absence of both cervix and uterus; Z79.899 Other long term (current) drug therapy; Z79.890 Hormone replacement therapy; Z91.048 Other nonmedicinal substance allergy status
CPT/HCPCS: 36415; 71045; 80053; 81001; 83880; 84484; 85025; 85610; 85730; 93005; 96365; 96366; 99285; A9270; J2305; J3490; J7030; 93010; 99291

== ENCOUNTER 2024-07-23 08:27 | Emergency (ER) | payer BC, OTHER ==
[2024-07-23] MEDS ORDERED: Sodium Chloride 0.9% 2.5 ML Syringe FLUSH PRN (08:31)
[2024-07-23] MEDS: Sodium Chloride 0.9% 10 ML Syringe FLUSH PRN (08:51)
[2024-07-23 08:55] LABS: BASOPHILS ABSOLUTE AUTO 0.02 K/uL (0.00-0.20); BASOPHILS PERCENT AUTO 0.4 % (0.0-1.0); EOSINOPHILS ABSOLUTE AUTO 0.22 K/uL (0.00-0.45); EOSINOPHILS PERCENT AUTO 3.9 % (0.0-6.0); HEMOGLOBIN 12.6 g/dL (12.0-16.0); IMMATURE GRAN ABSOLUTE AUTO 0.01 K/uL (0.00-0.05); IMMATURE GRAN PERCENT AUTO 0.2 % (0.0-0.4); LYMPHOCYTES ABSOLUTE AUTO 1.68 K/uL (1.00-4.80); LYMPHOCYTES PERCENT AUTO 29.8 % (24.0-44.0); MEAN CORPUSCULAR HEMOGLOBIN 29.6 pg (28.0-32.0); MEAN CORPUSCULAR HGB CONC 34.1 g/dL (32.0-36.0); MEAN CORPUSCULAR VOLUME 87.1 fL (83.0-99.0); MEAN PLATELET VOLUME 10.6 fL (9.4-12.3); MONOCYTES ABSOLUTE AUTO 0.32 K/uL (0.00-0.80); MONOCYTES PERCENT AUTO 5.7 % (0.0-8.0); NEUTROPHILS ABSOLUTE AUTO 3.38 K/uL (1.80-7.70); PLATELET COUNT,PLT 223 K/uL (150-400); RED BLOOD CELL COUNT 4.25 M/uL (4.10-5.30); WHITE BLOOD CELL COUNT,WBC 5.63 K/uL (3.9-11.3)
[2024-07-23] MEDS: Nitroglycerin 0.4 MG Tab.SL SL ONE ×2 (09:08→09:18)
[2024-07-23 09:22] LABS: ALANINE AMINOTRANSFERASE,ALT 28 IU/L (14-63); ALBUMIN 3.8 g/dL (3.4-5.0); ALKALINE PHOSPHATASE 110 U/L (46-116); ASPARTATE AMNIOTRANSFERASE,AST 24 IU/L (15-37); BILIRUBIN TOTAL 0.6 mg/dL (0.2-1.0); BLOOD UREA NITROGEN,BUN 11 mg/dL (7.0-18.0); CARBON DIOXIDE,CO2 26.5 mmol/L (21.0-32.0); CHLORIDE,CL 105 mmol/L (98-107); CREATININE 0.9 mg/dL (0.6-1.0); EST CRCL DRUG DOSING (CG) 52.93 mL/min; GLUCOSE RANDOM 100 mg/dL (74-106); POTASSIUM,K 4.1 mmol/L (3.5-5.1); PROTEIN TOTAL,TP 7.5 g/dL (6.4-8.2); SODIUM,NA 142 mmol/L (136-145)
[2024-07-23 09:28] LABS: ESTIMATED GFR 72 mL/min (>60)
[2024-07-23] MEDS: Aspirin 81 MG Tab.Chew PO ONE (09:50)
[2024-07-23 12:15] VITALS: BP 140/58; PULSE 68
== END 2024-07-23 12:12 | disposition home or self-care (01) ==
LOC: MW.ED 08:27
DX: R07.9 Chest pain, unspecified (principal); I10 Essential (primary) hypertension; E03.9 Hypothyroidism, unspecified; Z91.048 Other nonmedicinal substance allergy status; Z79.890 Hormone replacement therapy; Z79.899 Other long term (current) drug therapy; Z90.710 Acquired absence of both cervix and uterus; Z75.8 Other problems related to medical facilities and other health care
CPT/HCPCS: 36415; 71046; 80053; 84484; 85025; 93005; 99285; A9270; 93010; 99284